=== PATIENT | male | born 1985 | race Caucasian/White ===

== ENCOUNTER 2016-11-25 17:23 | Emergency (ER) | payer MEDICARE, MEDICAID ==
[2016-11-25] MEDS ORDERED: oxyCOD/ACETAMIN 5 MG/325 MG TABLET PO STA (17:38)
[2016-11-25] MEDS ORDERED: oxyCOD/ACETAMIN 5 MG/325 MG TABLET PO ONE (17:40)
== END 2016-11-25 17:48 | disposition home or self-care (01) ==
DX: M54.5 Low back pain (principal); R10.9 Unspecified abdominal pain; G89.29 Other chronic pain; R03.0 Elevated blood-pressure reading, without diagnosis of hypertension
CPT/HCPCS: 99283; A9270

== ENCOUNTER 2017-09-10 10:20 | Observation (INO) | payer MEDICARE, MEDICAID ==
[2017-09-10] MEDS ORDERED: SODIUM CHLORIDE 0.9% 1,000 ML IV ONE (11:24)
[2017-09-10] MEDS ORDERED: ONDANSETRON 4 MG/2 ML VIAL IVP STA (11:24)
[2017-09-10] MEDS ORDERED: MORPHINE 2 MG/ML CARPUJECT IVP STA ×2 (11:24→12:34)
--- NOTE | 2017-09-10 11:48 | ED Physician Documentation ---
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 denies: Nausea, Vomiting, Diarrhea : denies: Dysuria PD PAST MEDICAL HISTORY - Past Medical History Past Medical History: Yes - Past Surgical History Past Surgical History: Yes General: Appendectomy, Splenectomy, Other - Present Medications Home Medications: Ambulatory Orders Medication Instructions Recorded Confirmed Multivitamin [Theragran] 1 tab PO DAILY 09/10/17 09/10/17 - Allergies Allergies/Adverse Reactions: Allergies Allergy/AdvReac Type Severity Reaction Status Date / Time vancomycin Allergy Rash Verified 09/10/17 10:33 - Social History Does the pt smoke?: Yes Smoking Status: Current every day smoker Does the pt drink ETOH?: No Does the pt have substance abuse?: No - Immunizations Immunizations are current?: Yes PD ED PE NORMAL - Vitals Vital signs reviewed: Yes - Cardiac Cardiac: RRR - Respiratory Respiratory: No respiratory distress, Clear bilaterally - Abdomen Abdomen: Other (+ BS, soft, numerous surgical scars, tedner swelling LLQ c/w ventral hernia, cannot reduce) - Male Male : Other (no hernia, testes desc NT and no mass appreciated) Results - Vitals Vitals: Vital Signs - 24 hr 09/10/17 09/10/17 09/10/17 10:31 12:07 13:49 Temperature 36.5 C Heart Rate 81 74 56 L Respiratory 20 18 18 Rate Blood Pressure 134/61 H 131/82 H 123/83 H O2 Saturation 95 98 97 Oxygen O2 Source Room air - Labs Labs: Laboratory Tests 09/10/17 09/10/17 12:03 12:03 WBC 10.9 H RBC 5.09 Hgb 14.7 Hct 42.7 MCV 83.9 MCH 28.9 MCHC 34.5 RDW 13.5 Plt Count 236 MPV 8.7 Neut # 7.2 H Lymph # 2.5 [place] # 0.7 Eos # 0.3 Baso # 0.1 Absolute Nucleated RBC 0.01 Nucleated RBC % 0.1 Sodium 135 Potassium 4.2 Chloride 99 L Carbon Dioxide 26 Anion Gap 10.0 BUN 13 Creatinine 1.1 Estimated GFR (MDRD) 77 L Glucose 103 H Calcium 9.3 - Rads (name of study) CT AP Radiology: See rad report (fat containing hernia right of umblicus but no hernia LLQ does have dilated L abd bowel loops with a dominant dilated loop right of midline with apparent encircling suture line c/w prio anasmatosis and additonal) PD MEDICAL DECISION MAKING - ED course ED course: partial SBO per rad read d/w surgeon plan to obs NPO IVF hopefully avert more surgery Departure - Departure Disposition: ED Place in Observation Clinical Impression: Partial small bowel obstruction Abdominal pain Qualifiers: Abdominal location: lower abdomen, unspecified Qualified Code(s): R10.30 - Lower abdominal pain, unspecified Condition: Fair Discharge Date/Time: 09/10/17 16:25
[2017-09-10 12:15] LABS: BASOPHILS # (AUTO) 0.1 10^3/uL (0.0-0.1); BASOPHILS % (AUTO) 1.3 %; EOSINOPHILS # (AUTO) 0.3 10^3/uL (0.0-0.7); EOSINOPHILS % (AUTO) 2.8 %; HGB - HEMOGLOBIN 14.7 g/dL (14.0-18.0); LYMPHOCYTES # (AUTO) 2.5 10^3/uL (1.5-3.5); MEAN CORPUSCULAR HEMOGLOBIN 28.9 pg (27.0-31.0); MEAN CORPUSCULAR HGB CONC 34.5 g/dL (32.0-36.0); MEAN CORPUSCULAR VOLUME 83.9 fL (80.0-94.0); MEAN PLATELET VOLUME 8.7 fL (7.4-11.4); MONOCYTES # (AUTO) 0.7 10^3/uL (0.0-1.0); MONOCYTES % (AUTO) 6.8 %; NEUTROPHILS # (AUTO) 7.2 10^3/uL (1.5-6.6); NEUTROPHILS % (AUTO) 66.1 %; PLT - PLATELET COUNT 236 10^3/uL (130-450); RED BLOOD COUNT 5.09 10^6/uL (4.70-6.10); RED CELL DISTRIBUTION WIDTH 13.5 % (12.0-15.0); WHITE BLOOD COUNT 10.9 x10^3/uL (4.8-10.8)
[2017-09-10 12:26] LABS: CALCIUM 9.3 mg/dL (8.5-10.3); CREATININE 1.1 mg/dL (0.6-1.2)
--- NOTE | 2017-09-10 12:32 | CT Report ---
EXAM: CT ABDOMEN AND PELVIS EXAM DATE: 09/10/2017 12:01 PM. CLINICAL HISTORY: Prior surgeries LLQ ventral hernia cant reduce. COMPARISONS: None. TECHNIQUE: Routine helical CT imaging was performed through the abdomen and pelvis. IV contrast: Amt/ type. Enteric contrast: No. Reconstructions: Coronal and sagittal. In accordance with CT protocol optimization, one or more of the following dose reduction techniques w ere utilized for this exam: automated exposure control, adjustment of mA and/or KV based on patient s ize, or use of iterative reconstructive technique. FINDINGS: Lung Bases: Unremarkable. Liver/spleen/pancreas/adrenal glands: Unremarkable, by noncontrast imaging. Gallbladder/Bile Ducts: Status post cholecystectomy. No definite ductal dilatation. Kidneys: No stones, hydronephrosis, hydroureter or perinephric stranding. Peritoneal Cavity/Bowel: No free air, free fluid or lucia lymphadenopathy. The appendix appears unrem arkable. There is a small fat-containing hernia just to the right of the midline 2 cm above the umbilicus with a defect measuring 1.7 x 1.3 cm and herniated fat content measuring 2.2 x 1.7 x 3.7 cm. Some mild ontiveros zy associated opacity which could represent inflammation. This hernia appears to be just above the le asya of some apparent anterior abdominal wall mesh. Postoperative changes of the anterior abdominal wa ll are demonstrated. No definite herniated bowel. No definite left-sided hernia. There is dilatation of some left abdominal small bowel loops with a dominant dilated loop to the righ t of the midline, short axis diameter 5.7 cm. There is an apparent encircling surgical suture line ar ound this area of dominant dilatation compatible with history of surgical anastomosis. Additional sut ure lines associated with some small bowel loops just left of midline. No definite herniated bowel. S ome small bowel loops are closely opposed to the anterior abdominal wall and adhesions are a consider ation. There are multiple nondistended distal small bowel loops. Small bowel obstruction is a conside ration. Pelvic Organs: Normal. The bladder and visualized pelvic organs are within normal limits. Vasculature: No aneurysms or other significant abnormality. Bones: No significant abnormality. Other: None. IMPRESSION: 1. Small fat-containing hernia just to the right of the midline to 7 m above the umbilicus. Mild asso ciated hazy opacity which could represent inflammation. 2. Postoperative changes of the small bowel. There are some dilated small bowel loops, greatest in th e region of apparent prior small bowel anastomosis, with nondistended distal small bowel. Therefore, small bowel obstruction is excluded, including closed loop obstruction. Clinical correlation and cris elation with the surgical history is recommended. No herniated bowel demonstrated although some small bowel loops are closely opposed to the anterior abdominal wall. Adhesions could be considered. 3. Anterior abdominal wall postoperative changes. 4. Status post cholecystectomy. [facility] The above findings were discussed with Dr. Karen Bustamante by Dr. Fahad Aguirre at 12:30 hrs on 09/10/17. Referring Provider Line: [phone] SITE ID: [id number]
[2017-09-10] MEDS ORDERED: ACETAMINOPHEN 325 MG TABLET PO PRN (15:15)
[2017-09-10] MEDS ORDERED: ONDANSETRON 4 MG/2 ML VIAL IVP PRN (15:15)
[2017-09-10] MEDS ORDERED: SODIUM CHLORIDE FLUSH 0.9% 10 ML SYRINGE IVP PRN (15:15)
[2017-09-10] MEDS: MORPHINE 2 MG/ML CARPUJECT IVP PRN ×2 (15:53→17:55)
[2017-09-10] MEDS ORDERED: DOCUSATE SODIUM 100 MG/10 ML UDC PO SCH (16:00)
[2017-09-10] MEDS ORDERED: LACTATED RINGERS 1,000 ML IV SCH (16:00)
[2017-09-10 16:38] VITALS: BP 150/87
[2017-09-10] MEDS ORDERED: SODIUM CHLORIDE FLUSH 0.9% 10 ML SYRINGE IVP SCH (22:00)
--- NOTE | 2017-09-11 01:30 | HISTORY & PHYSICAL EXAMINATION ---
Chief Complaint - Chief Complaint Chief Complaint: Abdominal pain Abdominal Pain HPI - History of Present Illness HPI Comment/Other: This is a 32-year-old gentleman who presents to the emergency department with 1 day onset of abdominal pain. He has had multiple abdominal surgeries including a trauma ex lap with A splenectomy, small bowel resection, jejunostomy, colostomy and jejunal feeding tube in 1997. Since that surgery he has undergone 2 surgeries for ventral hernia repairs and 2 surgeries for bowel obstructions. He states that today he began having pain in the left lower quadrant. He is still passing gas and his last bowel movement was yesterday. He denies any nausea or vomiting. Upon evaluation in the emergency department a CT scan of the abdomen was performed without oral contrast which does demonstrate a single loop of dilated small bowel near it appears to be an anastomosis concerning for possible small bowel obstruction. Subsequently a surgical consultation was obtained. Upon my evaluation of the patient he has resting comfortably with minimal abdominal pain.He currently denies any vomiting or nausea. PMH/PSH - Past Medical History Cardiovascular: positive: None Respiratory: positive: None Neuro: positive: None Endocrine/Autoimmune: positive: None GI: positive: Chronic constipation : positive: None HEENT: positive: Chronic vision loss Psych: positive: None Musculoskeletal: positive: None Derm: positive: None MRSA Hx?: Yes - Past Surgical History General: positive: Appendectomy, Splenectomy, Other Social & Family Hx - Social History Does the pt smoke?: Yes Smoking Status: Current every day smoker Does the pt drink ETOH?: No Does the pt have substance abuse?: No Meds/Allgy - Home Medications Home Medications: Ambulatory Orders Medication Instructions Recorded Confirmed Multivitamin [Theragran] 1 tab PO DAILY 09/10/17 09/10/17 - Allergies Allergies/Adverse Reactions: Allergies Allergy/AdvReac Type Severity Reaction Status Date / Time vancomycin Allergy Rash Verified 09/10/17 10:33 Exam - Vital Signs Reviewed Vital Signs: Yes - Physical Exam General Appearance: positive: No acute distress Respiratory: positive: Breath sounds nml Cardiovascular: positive: Regular rate & rhythm Abdomen: positive: No distention, Other (Mild tenderness tenderness to palpation in the left lower quadrant). negative: Guarding Extremities: positive: No pedal edema Neurologic/Psychiatric: positive: Oriented x3 Results - Lab Results Fish Bones: 09/10/17 12:03 09/10/17 12:03 ARRA - Anticipated LOS Anticipated Stay Length: Less than 2 midnights Impression/Plan - Problem List Problem List: abdominal pain - The etiology of the patient's abdominal pain may be secondary to a bowel obstruction. He will require enteric contrast to definitively make this diagnosis. The patient will be admitted for observation and a small bowel series will be performed. He has no peritoneal findings that would warrant any urgent surgical exploration. The patient will undergo serial abdominal exams and labs will repeat repeated tomorrow. If his small bowel series does not demonstrate any signs of obstruction he will be discharged home. All the above was explained to the patient. He does not require an NG tube at this time given that he is abdomen is nondistended and he denies any nausea or vomiting. We will continue IV fluids while n.p.o.
--- NOTE | 2017-09-17 12:44 | DISCHARGE SUMMARY ---
Discharge Summary Condition at Discharge: Fair - HOSPITAL COURSE Hospital Course: Patient was admitted for abdominal pain with a possible small bowel obstruction with the plan to undergo a small bowel series upon admission. The patient left the hospital without notifying the nurse or myself. - ALLERGIES Allergies/Adverse Reactions: Allergies Allergy/AdvReac Type Severity Reaction Status Date / Time vancomycin Allergy Rash Verified 09/10/17 10:33 - MEDICATIONS Home Medications: Ambulatory Orders Medication Instructions Recorded Confirmed Multivitamin [Theragran] 1 tab PO DAILY 09/10/17 09/10/17 - LABS Result Diagrams: 09/10/17 12:03 09/10/17 12:03
== END 2017-09-10 18:47 | disposition left against medical advice (07) ==
LOC: ED 10:20 → OBS 15:15
PROVIDERS: ADMIT Surgery; ATTEND Surgery
DX: R10.32 Left lower quadrant pain (principal); K59.09 Other constipation; F17.200 Nicotine dependence, unspecified, uncomplicated; H54.7 Unspecified visual loss; Z90.81 Acquired absence of spleen; Z90.49 Acquired absence of other specified parts of digestive tract; Z86.14 Personal history of Methicillin resistant Staphylococcus aureus infection
CPT/HCPCS: 36415; 74176; 80048; 85025; 96361; 96374; 96376; 99283; 99284; A9270; G0378; J7120

== ENCOUNTER 2017-09-24 16:14 | Emergency (ER) | payer MEDICARE, MEDICAID ==
[2017-09-24] MEDS ORDERED: IOPAMIDOL-300 50 ML VIAL ONE (16:35)
[2017-09-24] MEDS ORDERED: IOPAMIDOL-300 100 ML VIAL ONE (16:35)
[2017-09-24 16:40] LABS: BASOPHILS # (AUTO) 0.1 10^3/uL (0.0-0.1); BASOPHILS % (AUTO) 1.2 %; EOSINOPHILS # (AUTO) 0.2 10^3/uL (0.0-0.7); HGB - HEMOGLOBIN 15.3 g/dL (14.0-18.0); LYMPHOCYTES % (AUTO) 20.7 %; MEAN CORPUSCULAR HGB CONC 34.5 g/dL (32.0-36.0); MEAN CORPUSCULAR VOLUME 84.2 fL (80.0-94.0); MEAN PLATELET VOLUME 8.3 fL (7.4-11.4); MONOCYTES # (AUTO) 0.5 10^3/uL (0.0-1.0); MONOCYTES % (AUTO) 5.5 %; NEUTROPHILS % (AUTO) 70.6 %; PLT - PLATELET COUNT 284 10^3/uL (130-450); RED BLOOD COUNT 5.27 10^6/uL (4.70-6.10); RED CELL DISTRIBUTION WIDTH 13.7 % (12.0-15.0); WHITE BLOOD COUNT 9.9 x10^3/uL (4.8-10.8)
[2017-09-24 16:52] LABS: ALBUMIN 4.2 g/dL (3.2-5.5); ALBUMIN/GLOBULIN RATIO 1.2 (1.0-2.2); BILIRUBIN,TOTAL 0.7 mg/dL (0.2-1.0); CALCIUM 9.4 mg/dL (8.5-10.3); CREATININE 0.9 mg/dL (0.6-1.2); TOTAL PROTEIN 7.6 g/dL (6.7-8.2)
--- NOTE | 2017-09-24 17:20 | ED Physician Documentation ---
PD HPI ABD PAIN - Stated complaint Stated Complaint: POST OP CHECK - Chief complaint Chief Complaint: Abd Pain - History obtained from History obtained from: Patient - History of Present Illness Timing - onset: How many weeks ago (1) Timing - duration: Weeks (1) Timing - details: Gradual onset Pain level max: 8 Pain level now: 8 Quality: Aching, Pain Location: All over / everywhere Radiation: Other (non-radiating) Improved by: Other (marijuana) Worsened by: Palpation Associated symptoms: Nausea, Constipation. No: Fever, Vomiting, Hematemesis, Diarrhea, Melena, Hematochezia Similar symptoms before: Diagnosis (possible bowel obstruction) - Additional information Additional information: Patient is a 32-year-old male who presents to the emergency department complaining of abdominal pain for the past week. States no bowel movement for 5 days. States is not passing flatus either. He was going to be placed into observation a week ago for possible bowel obstruction, but did not know his 's phone number and so signed out AMA. Has not improved since that time. No vomiting. Has felt nauseated Review of Systems Ten Systems: 10 systems reviewed and negative Constitutional: denies: Fever, Chills Ears: denies: Ear pain Nose: denies: Rhinorrhea / runny nose, Congestion Throat: denies: Sore throat Cardiac: denies: Chest pain / pressure Respiratory: denies: Cough, Wheezing GI: denies: Vomiting, Hematemesis, Bloody / black stool Skin: denies: Rash Musculoskeletal: denies: Neck pain, Back pain Neurologic: denies: Headache PD PAST MEDICAL HISTORY - Past Medical History Past Medical History: Yes Cardiovascular: None Respiratory: None Neuro: None Endocrine/Autoimmune: None GI: Chronic constipation : None HEENT: Chronic vision loss Psych: None Musculoskeletal: None Derm: None - Past Surgical History Past Surgical History: Yes General: Cholecystectomy, Appendectomy, Splenectomy, Other - Present Medications Home Medications: Ambulatory Orders Medication Instructions Recorded Confirmed Hydrocodone/Acetaminophen 1 - 2 each PO Q6H PRN #6 tablet 09/24/17 [Hydrocodon-Acetaminophen 5-325] Ondansetron Odt [Zofran] 4 mg TL Q6H PRN #10 tablet 09/24/17 - Allergies Allergies/Adverse Reactions: Allergies Allergy/AdvReac Type Severity Reaction Status Date / Time vancomycin Allergy Rash Verified 09/24/17 16:19 - Social History Does the pt smoke?: Yes Smoking Status: Current every day smoker Does the pt drink ETOH?: No Does the pt have substance abuse?: No - Immunizations Immunizations are current?: Yes - POLST Patient has POLST: No PD ED PE NORMAL - Vitals Vital signs reviewed: Yes - General General: Alert and oriented X 3, No acute distress, Well developed/nourished - HEENT HEENT: PERRL, Moist mucous membranes - Neck Neck: Supple, no meningeal sign - Cardiac Cardiac: RRR - Respiratory Respiratory: No respiratory distress, Clear bilaterally - Abdomen Abdomen: Normal bowel sounds, Soft, Non distended, Other (Mild diffuse tenderness palpation without peritoneal signs.) - Rectal Rectal: Pt declined - Derm Derm: Warm and dry, No rash - Extremities Extremities: No edema - Neuro Neuro: Alert and oriented X 3 - Psych Psych: Normal mood, Normal affect Results - Vitals Vitals: Vital Signs - 24 hr 09/24/17 09/24/17 16:17 18:37 Temperature 36.6 C Heart Rate 87 76 Respiratory 18 20 Rate Blood Pressure 139/100 H 131/80 H O2 Saturation 99 95 Oxygen O2 Source Room air - Labs Labs: Laboratory Tests 09/24/17 09/24/17 16:32 16:32 WBC 9.9 RBC 5.27 Hgb 15.3 Hct 44.4 MCV 84.2 MCH 29.0 MCHC 34.5 RDW 13.7 Plt Count 284 MPV 8.3 Neut # 7.0 H Lymph # 2.0 [place] # 0.5 Eos # 0.2 Baso # 0.1 Absolute Nucleated RBC 0.00 Nucleated RBC % 0.0 Sodium 135 Potassium 3.8 Chloride 98 L Carbon Dioxide 24 Anion Gap 13.0 BUN 9 Creatinine 0.9 Estimated GFR (MDRD) 97 Glucose 101 H Calcium 9.4 Total Bilirubin 0.7 AST 33 ALT 28 Alkaline Phosphatase 58 Total Protein 7.6 Albumin 4.2 Globulin 3.4 Albumin/Globulin Ratio 1.2 Lipase 12 L - Rads (name of study) CT abdomen and pelvis Radiology: Prelim report reviewed, EMP read contemporaneously, See rad report ( Small fat-containing right paramedian supraumbilical anterior abdominal wall hernia, as before. 2. Decreased dilation of small bowel at the anastomosis in the anterior right mid abdomen. No evidence of obstruction. Contrast reaches the terminal ileum at the time of the scan. No inflammatory change is identified. ) PD MEDICAL DECISION MAKING - ED course Complexity details: reviewed old records, reviewed results, re-evaluated patient , considered differential, d/w patient, d/w family () ED course: Patient is a 32-year-old male who presents to the emergency department with ongoing abdominal pain. Has had this intermittently in the past. No evidence of obstruction today. Pain well controlled. Tolerating p.o. without difficulty. He is well-appearing, nontoxic. Will prescribe a small amount of pain medication for home and follow-up with his PCP for further evaluation and care. Patient and family counseled regarding signs and symptoms for which I believe and urgent re-evaluation would be necessary. Patient with good understanding of and agreement to plan and is comfortable going home at this time This document was made in part using voice recognition software. While efforts are made to proofread this document, sound alike and grammatical errors may occur. Departure - Departure Disposition: 01 Home, Self Care Clinical Impression: Abdominal pain Qualifiers: Abdominal location: generalized Qualified Code(s): R10.84 - Generalized abdominal pain Condition: Good Instructions: ED Abdominal Pain Unkn Cause Follow-Up: your,doctor in 1 week [Other] Prescriptions: Hydrocodone/Acetaminophen [Hydrocodon-Acetaminophen 5-325] 1 - 2 each PO Q6H PRN #6 tablet PRN Reason: pain Ondansetron Odt [Zofran] 4 mg TL Q6H PRN #10 tablet PRN Reason: Nausea / Vomiting Comments: The cause of your symptoms is unclear today. Your laboratory testing and CT scan are normal. Return if you worsen. Discharge Date/Time: 09/24/17 18:39
[2017-09-24] MEDS ORDERED: ONDANSETRON 4 MG/2 ML VIAL IVP STA (17:26)
[2017-09-24] MEDS ORDERED: HYDROmorphone 1 MG/ML SYRINGE IVP STA (17:26)
[2017-09-24] MEDS ORDERED: SODIUM CHLORIDE 0.9% 1,000 ML IV ONE ×2 (17:26)
--- NOTE | 2017-09-24 17:56 | CT Report ---
EXAM: CT ABDOMEN AND PELVIS EXAM DATE: 09/24/2017 05:45 PM. CLINICAL HISTORY: Abd pain, vomiting. COMPARISONS: 09/10/2017. TECHNIQUE: Routine helical CT imaging was performed through the abdomen and pelvis. IV contrast: 100 cc Isovue-300. Enteric contrast: Yes. Reconstructions: Coronal and sagittal. In accordance with CT protocol optimization, one or more of the following dose reduction techniques w ere utilized for this exam: automated exposure control, adjustment of mA and/or KV based on patient s ize, or use of iterative reconstructive technique. FINDINGS: Lung Bases: Unremarkable. Liver: Normal. No masses. Gallbladder/Bile Ducts: Gallbladder surgically absent, as before. No ductal dilatation. Spleen: Normal. Pancreas: Normal. Adrenal Glands: Normal. Kidneys: Normal. No masses or hydronephrosis. Peritoneal Cavity/Bowel: Stomach and small bowel are normal in size. Dilation of small bowel in the a imelda of anastomosis in the anterior right mid abdomen is decreased. Enteric contrast reaches the termi nal ileum at the time of the scan. The appendix is normal. There is minimal formed stool in the colon . There is no pericolonic fat stranding. There is no lymphadenopathy, ascites, or pneumoperitoneum. Pelvic Organs: Bladder, prostate gland, and seminal vesicles are unremarkable. Vasculature: No aneurysms or other significant abnormality. Bones: No significant abnormality. Other: As before, there is a small fat-containing hernia with a 1.8 cm fascial defect right paramedia n supraumbilical region. IMPRESSION: 1. Small fat-containing right paramedian supraumbilical anterior abdominal wall hernia, as before. 2. Decreased dilation of small bowel at the anastomosis in the anterior right mid abdomen. No evidenc e of obstruction. Contrast reaches the terminal ileum at the time of the scan. No inflammatory change is identified. [facility] Referring Provider Line: [phone] SITE ID: [id number]
--- NOTE | 2017-09-24 17:56 | CT Preliminary Report ---
Exam: CT ABDOMEN/PELVIS W/ IMPRESSION: 1. Small fat-containing right paramedian supraumbilical anterior abdominal wall hernia, as before. 2. Decreased dilation of small bowel at the anastomosis in the anterior right mid abdomen. No evidenc e of obstruction. Contrast reaches the terminal ileum at the time of the scan. No inflammatory change is identified. [facility] SITE ID: [id number]
[2017-09-24 18:39] VITALS: BP 131/80
== END 2017-09-24 18:39 | disposition home or self-care (01) ==
LOC: ED 16:14
DX: R10.84 Generalized abdominal pain (principal); F17.200 Nicotine dependence, unspecified, uncomplicated
CPT/HCPCS: 36415; 74177; 80053; 83690; 85025; 96361; 96374; 99283; 99285; J1170; Q9967

== ENCOUNTER 2018-07-02 16:02 | Emergency (ER) | payer MEDICARE, MEDICAID ==
--- NOTE | 2018-07-02 16:50 | ED Physician Documentation ---
PD HPI DYSPNEA - Stated complaint Stated Complaint: COUGH/BLEEDING EAR - Chief complaint Chief Complaint: Resp - History obtained from History obtained from: Patient - History of Present Illness Timing - onset: Other (Cough for 9 mos, but worse in the last 5 days. Also C/O blood on q-tip from R ear. Cp Rad to R shoulder. Known ventral hernia which he feels popping while coughing.) - Additional information Additional information: He had an expiratory laparotomy for trauma in 1997 and had a partial splenectomy. Review of Systems Constitutional: reports: Sweats. denies: Fever, Chills Ears: denies: Loss of hearing, Ear pain Nose: reports: Rhinorrhea / runny nose Throat: denies: Sore throat Respiratory: reports: Dyspnea, Cough GI: reports: Abdominal Pain. denies: Nausea, Vomiting, Constipation, Diarrhea PD PAST MEDICAL HISTORY - Past Medical History Cardiovascular: None Respiratory: None Endocrine/Autoimmune: None GI: Chronic constipation : None HEENT: Chronic vision loss Psych: None Musculoskeletal: None Derm: None - Past Surgical History Past Surgical History: Yes General: Cholecystectomy, Appendectomy, Splenectomy, Other - Present Medications Home Medications: Ambulatory Orders Medication Instructions Recorded Confirmed Azithromycin [Zithromax] 1 tab PO DAILY #4 tablet 07/02/18 Benzonatate [Tessalon Perle] 100 - 200 mg PO TID PRN #30 capsule 07/02/18 Neomycin/Polymyx/Hc Otic Drops 4 drops OT TID #1 bottle 07/02/18 [Cortisporin Ear Susp] - Allergies Allergies/Adverse Reactions: Allergies Allergy/AdvReac Type Severity Reaction Status Date / Time vancomycin Allergy Rash Verified 07/02/18 16:08 - Social History Does the pt smoke?: Yes Smoking Status: Current every day smoker Does the pt drink ETOH?: No Does the pt have substance abuse?: No - Family History Family history: reports: Non contributory - Immunizations Immunizations are current?: Yes - POLST Patient has POLST: No PD ED PE NORMAL - Vitals Vital signs reviewed: Yes - General General: Alert and oriented X 3, No acute distress - HEENT HEENT: PERRL, EOMI, Other (Scrape inferior R canal) - Neck Neck: Supple, no meningeal sign, No bony TTP - Cardiac Cardiac: RRR, No murmur - Respiratory Respiratory: No respiratory distress, Clear bilaterally - Abdomen Abdomen: Normal bowel sounds, Soft, Non tender, Other (Lot of scars, CDI) - Derm Derm: Normal color, Warm and dry, No rash - Extremities Extremities: No deformity, No tenderness to palpate - Neuro Neuro: Alert and oriented X 3, Normal speech Results - Vitals Vitals: Vital Signs - 24 hr 07/02/18 16:05 Temperature 36 C L Heart Rate 91 Respiratory 22 Rate Blood Pressure 161/100 H O2 Saturation 98 Oxygen O2 Source Room air - EKG (time done) 1657 Rate: Rate (enter#) (64) Rhythm: NSR Mathews: Normal Intervals: Normal NV QRS: Normal Ischemia: Normal ST segments Computer interpretation: Agree with computer - Labs Labs: Laboratory Tests 07/02/18 07/02/18 07/02/18 17:39 17:39 17:39 WBC 8.3 RBC 5.26 Hgb 15.4 Hct 44.6 MCV 84.8 MCH 29.3 MCHC 34.5 RDW 13.4 Plt Count 241 MPV 8.1 Neut # (Auto) 5.7 Lymph # (Auto) 1.8 [place] # (Auto) 0.6 Eos # (Auto) 0.1 Baso # (Auto) 0.1 Absolute Nucleated RBC 0.01 Nucleated RBC % 0.1 Sodium 136 Potassium 4.0 Chloride 103 Carbon Dioxide 28 Anion Gap 5.0 L BUN 11 Creatinine 1.0 Estimated GFR (MDRD) 85 L Glucose 88 Lactic Acid 0.7 Calcium 8.8 PD MEDICAL DECISION MAKING - ED course ED course: 33-year-old gentleman with history of abdominal trauma and partial splenectomy presents with subacute reductive cough that is worsening associated with right ear bleeding. The right ear canal is just scratched. Given the postsplenectomy status I am putting him on antibiotics. Departure - Departure Disposition: 01 Home, Self Care Clinical Impression: Bronchitis, Post-splenectomy Abdominal pain Qualifiers: Abdominal location: generalized Qualified Code(s): R10.84 - Generalized abdominal pain Ear canal abrasion Qualifiers: Encounter type: initial encounter Laterality: right Qualified Code(s): S00.411A - Abrasion of right ear, initial encounter Condition: Good Record reviewed to determine appropriate education?: Yes Instructions: ED Bronchitis Asthmatic Prescriptions: Azithromycin [Zithromax] 1 tab PO DAILY #4 tablet Benzonatate [Tessalon Perle] 100 - 200 mg PO TID PRN #30 capsule PRN Reason: Cough Neomycin/Polymyx/Hc Otic Drops [Cortisporin Ear Susp] 4 drops OT TID #1 bottle Comments: Call your doctor to arrange a follow-up appointment, make the next available appointment. In the interim, return anytime if worse or if new symptoms develop. Your blood pressure was elevated today on check into the emergency department. This does not mean that you have hypertension, it is a common phenomenon to come to the emergency department and have elevated blood pressure. I recommend that you see your primary care physician within the week to have it rechecked when you are feeling better.
[2018-07-02 17:45] LABS: BASOPHILS # (AUTO) 0.1 10^3/uL (0.0-0.1); BASOPHILS % (AUTO) 1.4 %; EOSINOPHILS # (AUTO) 0.1 10^3/uL (0.0-0.7); EOSINOPHILS % (AUTO) 1.1 %; HGB - HEMOGLOBIN 15.4 g/dL (14.0-18.0); LYMPHOCYTES # (AUTO) 1.8 10^3/uL (1.5-3.5); LYMPHOCYTES % (AUTO) 21.4 %; MEAN CORPUSCULAR HEMOGLOBIN 29.3 pg (27.0-31.0); MEAN CORPUSCULAR HGB CONC 34.5 g/dL (32.0-36.0); MEAN CORPUSCULAR VOLUME 84.8 fL (80.0-94.0); MEAN PLATELET VOLUME 8.1 fL (7.4-11.4); MONOCYTES # (AUTO) 0.6 10^3/uL (0.0-1.0); MONOCYTES % (AUTO) 7.5 %; NEUTROPHILS # (AUTO) 5.7 10^3/uL (1.5-6.6); NEUTROPHILS % (AUTO) 68.6 %; PLT - PLATELET COUNT 241 10^3/uL (130-450); RED BLOOD COUNT 5.26 10^6/uL (4.70-6.10); RED CELL DISTRIBUTION WIDTH 13.4 % (12.0-15.0); WHITE BLOOD COUNT 8.3 x10^3/uL (4.8-10.8)
--- NOTE | 2018-07-02 17:53 | XRAY Report ---
Reason: cough Procedure Date: 07/02/2018 Accession Number: [id number] / [id number] Procedure: XR - Chest 2 View X-Ray CPT Code: 41447 FULL RESULT: EXAM: CHEST RADIOGRAPHY EXAM DATE: 07/02/2018 05:45 PM. CLINICAL HISTORY: Cough. COMPARISON: None. TECHNIQUE: 2 views. FINDINGS: Lungs/Pleura: No dense consolidation. No large effusion or pneumothorax. No pulmonary edema. Mediastinum: Heart and mediastinal contours are unremarkable. Other: None. IMPRESSION: No acute radiographic pulmonary abnormalities. RADIA
[2018-07-02 17:55] LABS: CALCIUM 8.8 mg/dL (8.5-10.3)
[2018-07-02] MEDS ORDERED: HYDROcod/ACETAM 5/325 MG TABLET PO STA (17:58)
[2018-07-02] MEDS ORDERED: AZITHROMYCIN 250 MG TABLET PO STA (17:59)
[2018-07-02 18:06] VITALS: BP 106/63
== END 2018-07-02 18:11 | disposition home or self-care (01) ==
LOC: ED 16:02
DX: J40 Bronchitis, not specified as acute or chronic (principal); S00.411A Abrasion of right ear, initial encounter; R10.84 Generalized abdominal pain; R03.0 Elevated blood-pressure reading, without diagnosis of hypertension; K43.9 Ventral hernia without obstruction or gangrene; F17.200 Nicotine dependence, unspecified, uncomplicated; Z90.81 Acquired absence of spleen
CPT/HCPCS: 36415; 71046; 80048; 83605; 85025; 93005; 99283; A9270

== ENCOUNTER 2019-03-12 22:15 | Emergency (ER) | payer MEDICARE, MEDICAID ==
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
[2019-03-13] MEDS ORDERED: cephALEXin 250 MG CAPSULE PO STA (02:09)
[2019-03-13] MEDS ORDERED: HYDROcod/ACETAM 5/325 MG TABLET PO STA (02:10)
[2019-03-13] MEDS ORDERED: BACITRACIN OINT TOP STA (02:41)
[2019-03-13 02:52] VITALS: BP 118/75
== END 2019-03-13 02:52 | disposition home or self-care (01) ==
LOC: ED 22:15
DX: L08.9 Local infection of the skin and subcutaneous tissue, unspecified (principal); S81.811A Laceration without foreign body, right lower leg, initial encounter; W22.8XXA Striking against or struck by other objects, initial encounter; Y93.11 Activity, swimming; F17.200 Nicotine dependence, unspecified, uncomplicated
CPT/HCPCS: 87070; 87077; 87181; 87205; 99283; A9270

== ENCOUNTER 2019-04-17 20:58 | Emergency (ER) | payer MEDICARE, MEDICAID ==
[2019-04-17 21:03] VITALS: BP 127/72
[2019-04-17] MEDS ORDERED: oxyCODONE 5 MG TABLET PO STA (21:07)
[2019-04-17] MEDS ORDERED: PENICILLIN VK 250 MG TABLET PO STA (21:07)
--- NOTE | 2019-04-17 21:09 | ED Physician Documentation ---
History of Present Illness - Stated complaint Stated Complaint: TOOTH PX - Chief complaint Chief Complaint: Heent - History obtained from History obtained from: Patient, Family - History of Present Illness Timing: How many weeks ago (several weeks, worsening today) Pain level max: 9 Pain level now: 9 Improved by: Tylenol and Motrin helps slightly Worsened by: Eating,drinking, temperature - Additonal information Additional information: L upper dental pain. Sees his dentist this friday. No fevers. Review of Systems Constitutional: denies: Fever, Chills GI: denies: Vomiting, Diarrhea Musculoskeletal: denies: Neck pain, Back pain Neurologic: denies: Headache PD PAST MEDICAL HISTORY - Past Medical History Cardiovascular: None Respiratory: None Neuro: None Endocrine/Autoimmune: None GI: Chronic constipation : None HEENT: Chronic vision loss Psych: None Musculoskeletal: None Derm: None - Past Surgical History Past Surgical History: Yes General: Cholecystectomy, Appendectomy, Splenectomy, Other - Present Medications Home Medications: Ambulatory Orders Medication Instructions Recorded Confirmed Cephalexin [Keflex] 500 mg PO Q6H #28 capsule 03/13/19 HYDROcod/ACETAM 5/325 [[place] 5/325] 1 - 2 ea PO Q6H PRN #20 tablet 03/13/19 Sulfamethox/Trimeth 800/160 1 each PO BID #14 tablet 03/13/19 [Bactrim Ds 800/160] Oxycodone HCl/Acetaminophen 1 - 2 each PO Q6H PRN #14 tablet 04/17/19 [Percocet 5-325 mg Tablet] Penicillin V Potassium 500 mg PO Q6HR #40 tablet 04/17/19 - Allergies Allergies/Adverse Reactions: Allergies Allergy/AdvReac Type Severity Reaction Status Date / Time vancomycin Allergy Rash Verified 04/17/19 21:03 - Social History Does the pt smoke?: Yes Smoking Status: Current every day smoker Does the pt drink ETOH?: No Does the pt have substance abuse?: No - Immunizations Immunizations are current?: Yes - POLST Patient has POLST: No PD ED PE NORMAL - Vitals Vital signs reviewed: Yes - General General: Alert and oriented X 3, No acute distress, Well developed/nourished - HEENT HEENT: PERRL, Moist mucous membranes, Other (Diffuse dental decay. No gingival swelling or abscess. No facial swelling.) - Neck Neck: Supple, no meningeal sign, No adenopathy - Cardiac Cardiac: RRR - Respiratory Respiratory: No respiratory distress, Clear bilaterally - Derm Derm: Warm and dry - Neuro Neuro: Alert and oriented X 3 - Psych Psych: Normal mood, Normal affect Results - Vitals Vitals: Vital Signs - 24 hr 04/17/19 21:01 Temperature 36.0 C L Heart Rate 66 Respiratory 19 Rate Blood Pressure 127/72 O2 Saturation 99 Oxygen O2 Source Room air PD MEDICAL DECISION MAKING - ED course Complexity details: considered differential, d/w patient ED course: 34-year-old male with diffuse dental decay. Will start on pain medication and antibiotics. Patient is well-appearing, nontoxic. Afebrile. No drainable abscess. No airway impingement. Patient counseled regarding signs and symptoms for which I believe and urgent re-evaluation would be necessary. Patient with good understanding of and agreement to plan and is comfortable going home at this time This document was made in part using voice recognition software. While efforts are made to proofread this document, sound alike and grammatical errors may occur. Departure - Departure Disposition: 01 Home, Self Care Clinical Impression: Pain due to dental caries Condition: Good Instructions: ED Tooth Pain Follow-Up: your,dentist this week [Other] Prescriptions: Penicillin V Potassium 500 mg PO Q6HR #40 tablet Oxycodone HCl/Acetaminophen [Percocet 5-325 mg Tablet] 1 - 2 each PO Q6H PRN #14 tablet PRN Reason: pain Comments: Take all antibiotics until gone. Return if you worsen. Follow-up with your dentist this week for further care. Do not drink alcohol or drive while on narcotic pain medicine. Note that many narcotic pain relievers also contain tylenol/acetaminophen. Please ensure that your total dose of acetaminophen from all sources does not exceed 3 grams (3000mg) per day. You may constipated on this medication, take a stool softener such as "Colace" twice a day while you are on it. Also recommend a [id number] laxative such as senna or MiraLAX any day that you do not have a bowel movement. If you received narcotic pain medication in the emergency department, do not drive or operate machinery for the next 24 hours.
== END 2019-04-17 21:24 | disposition home or self-care (01) ==
LOC: ED 20:58
DX: K02.9 Dental caries, unspecified (principal); F17.200 Nicotine dependence, unspecified, uncomplicated
CPT/HCPCS: 99282; 99283; A9270

== ENCOUNTER 2019-06-07 18:38 | Emergency (ER) | payer MEDICARE, MEDICAID ==
[2019-06-07 19:51] LABS: HGB - HEMOGLOBIN 15.6 g/dL (14.0-18.0); MEAN CORPUSCULAR HEMOGLOBIN 29.2 pg (27.0-31.0); MEAN CORPUSCULAR VOLUME 86.3 fL (80.0-94.0); RED BLOOD COUNT 5.34 10^6/uL (4.70-6.10); WHITE BLOOD COUNT 10.4 x10^3/uL (4.8-10.8)
[2019-06-07 19:52] LABS: BASOPHILS # (AUTO) 0.1 10^3/uL (0.0-0.1); BASOPHILS % (AUTO) 1.1 %; EOSINOPHILS # (AUTO) 0.2 10^3/uL (0.0-0.7); EOSINOPHILS % (AUTO) 1.5 %; LYMPHOCYTES # (AUTO) 2.3 10^3/uL (1.5-3.5); LYMPHOCYTES % (AUTO) 21.9 %; MEAN CORPUSCULAR HGB CONC 33.8 g/dL (32.0-36.0); MEAN PLATELET VOLUME 9.9 fL (7.4-11.4); MONOCYTES # (AUTO) 0.9 10^3/uL (0.0-1.0); MONOCYTES % (AUTO) 8.7 %; NEUTROPHILS # (AUTO) 6.9 10^3/uL (1.5-6.6); NEUTROPHILS % (AUTO) 66.5 %; PLT - PLATELET COUNT 270 10^3/uL (130-450); RED CELL DISTRIBUTION WIDTH 13.4 % (12.0-15.0)
[2019-06-07 20:04] LABS: ALBUMIN 4.4 g/dL (3.2-5.5); ALBUMIN/GLOBULIN RATIO 1.4 (1.0-2.2); BILIRUBIN,TOTAL 0.7 mg/dL (0.2-1.0); CALCIUM 9.5 mg/dL (8.5-10.3); TOTAL PROTEIN 7.6 g/dL (6.7-8.2)
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
[2019-06-07] MEDS ORDERED: IOVERSOL 320 100 ML VIAL IVP ONE ×2 (21:13→21:23)
[2019-06-07 21:17] LABS: MUDS CUTOFF CONCENTRATIONS CUTOFF CONC BELOW:
[2019-06-07 21:20] LABS: BILIRUBIN,URINE NEGATIVE (NEGATIVE); GLUCOSE, URINE (UA) NEGATIVE (NEGATIVE); KETONES,URINE (UA) NEGATIVE (NEGATIVE); LEUKOCYTE ESTERASE, URINE NEGATIVE (NEGATIVE); NITRITE,URINE NEGATIVE (NEGATIVE); OCCULT BLOOD,URINE NEGATIVE (NEGATIVE); PROTEIN,URINE NEGATIVE (NEGATIVE); UROBILINOGEN,URINE 0.2 (NORMAL) E.U./dL (NORMAL)
[2019-06-07 21:25] LABS: CLARITY,URINE CLEAR (CLEAR)
[2019-06-07 21:31] LABS: AMPHETAMINE SCREEN,URINE POSITIVE (NEGATIVE); BENZODIAZEPINES SCREEN, URINE NEGATIVE (NEGATIVE); COCAINE SCREEN URINE NEGATIVE (NEGATIVE); METHADONE SCREEN, URINE NEGATIVE (NEGATIVE); METHAMPHETAMINES SCREEN, URINE POSITIVE (NEGATIVE); OPIATE SCREEN, URINE NEGATIVE (NEGATIVE); OXYCODONE SCREEN, URINE NEGATIVE (NEGATIVE); PROPOXYPHENE SCREEN, URINE NEGATIVE (NEGATIVE); TRICYCLIC ANTIDEPRESSANT,URINE NEGATIVE (NEGATIVE)
--- NOTE | 2019-06-07 21:56 | CT Report ---
Reason: IV only, abd pain, Procedure Date: 06/07/2019 Accession Number: [id number] / [id number] Procedure: CT - Abdomen/Pelvis W CPT Code: Final Report FULL RESULT: EXAM: CT ABDOMEN AND PELVIS EXAM DATE: 06/07/2019 09:25 PM. CLINICAL HISTORY: IV only, abd pain. COMPARISONS: ABDOMEN/PELVIS W/ 09/24/2017 5:37 PM. TECHNIQUE: Routine helical CT imaging was performed through the abdomen and pelvis. IV contrast: OPTI 320 100ML. Enteric contrast: No. Reconstructions: Coronal and sagittal. In accordance with CT protocol optimization, one or more of the following dose reduction techniques were utilized for this exam: automated exposure control, adjustment of mA and/or KV based on patient size, or use of iterative reconstructive technique. FINDINGS: ABDOMEN: Lung Bases: Incompletely included lower lungs are grossly clear. Heart size is within normal limits. No basilar effusions. Liver: Unremarkable. Spleen: Unremarkable. Pancreas: Unremarkable. Gallbladder/Bile Ducts: Status post cholecystectomy. Biliary tree is normal caliber. Adrenal Glands: Unremarkable. Kidneys: No mass, calculi, or hydronephrosis. Peritoneum/Mesentery/Bowel: No free fluid, free air, or collection. No intestinal obstruction or inflammation. Small bowel anastomosis in the right mid abdomen again seen. The appendix is within normal limits. Lymph nodes: No mesenteric, periportal, or retroperitoneal lymphadenopathy. Vasculature: Abdominal aorta is nonaneurysmal. Portal vein is patent. Hepatic veins are patent. PELVIS: The bladder is unremarkable for the degree of distention. Prostate is present. No pelvic lymphadenopathy. Bones: No suspicious osseous lesions. Redemonstration of mild sacroiliitis. Small right paramedian supraumbilical anterior abdominal wall hernia measuring 3.4 cm, stable. IMPRESSION: No acute abnormalities. Redemonstration of small fat filled anterior supraumbilical hernia. RAD[facility]
[2019-06-07 22:05] VITALS: BP 154/90
== END 2019-06-07 22:07 | disposition home or self-care (01) ==
LOC: ED 18:38
DX: R10.9 Unspecified abdominal pain (principal); G89.29 Other chronic pain; K43.9 Ventral hernia without obstruction or gangrene; F15.10 Other stimulant abuse, uncomplicated; F17.200 Nicotine dependence, unspecified, uncomplicated
CPT/HCPCS: 36415; 74177; 80053; 81003; 83690; 85025; 99283; 99284; Q9967; 80306; 81001; 87086